=== PATIENT | male | born 1995 | race African-American/Black ===

== ENCOUNTER 2018-01-30 20:47 | Emergency (ER) | payer OTHER, SELFPAY ==
--- NOTE | 2018-01-30 22:18 | EDPHYS ---
Physician Documentation [facility] Name: Isiah Heart Age: 23 yrs Sex: Male : 1995 Arrival Date: 01/30/2018 Time: 20:53 Bed 10 Private MD: ED Physician Mckinley Valentine HPI: 01/30 21:53 This 23 yrs old Black Male presents to ER via Ambulatory with complaints of Nausea, tw4 Sore Throat. 21:53 The patient presents with sore throat. The patient describes throat pain as burning. tw4 Onset: The symptoms/episode began/occurred today. Severity of symptoms: At their worst the symptoms were moderate, in the emergency department the symptoms are unchanged. Modifying factors: The symptoms are alleviated by nothing, the symptoms are aggravated by nothing. Associated signs and symptoms: Pertinent positives: nausea, vomiting, Pertinent negatives chest pain, chills, diarrhea, dysphagia, earache, flu-like symptoms, headache, nausea. The patient has not experienced similar symptoms in the past. Historical: - Allergies: 21:13 No Known Allergies; sr5 - Home Meds: 21:13 None [Active]; sr5 - PMHx: 21:13 None; sr5 - PSHx: 21:13 None; sr5 - Immunization history:: Adult Immunizations up to date. - Social history:: Smoking status: Patient/guardian denies using tobacco, never smoked. - Ebola Screening: : Patient negative for fever greater than or equal to 101.5 degrees Fahrenheit, and additional compatible Ebola Virus Disease symptoms. ROS: 21:53 Constitutional: Negative for fever, chills, and weight loss, Eyes: Negative for injury, tw4 pain, redness, and discharge, Cardiovascular: Negative for chest pain, palpitations, and edema, Respiratory: Negative for shortness of breath, cough, wheezing, and pleuritic chest pain, Abdomen/GI: Negative for abdominal pain, nausea, vomiting, diarrhea, and constipation. 21:53 ENT: Positive for sore throat, Negative for ear pain, foreign body sensation, Gum pain hearing loss, pulling at ears, Teeth pain nasal discharge, sinus congestion. 21:53 Abdomen/GI: Positive for nausea and vomiting, nausea, vomiting, and diarrhea. Exam: 21:53 Constitutional: This is a well developed, well nourished patient who is awake, alert, tw4 and in no acute distress. Head/Face: Normocephalic, atraumatic. 21:53 ENT: External ear(s): are unremarkable, Ear canal(s): are normal, TM's: are normal, Posterior pharynx: swelling, that is mild, erythema, that is mild. Vital Signs: 21:13 BP 135 / 83; Pulse 72; Resp 18; Temp 98.6; Pulse Ox 100% on R/A; Weight 97.52 kg; sr5 Height 6 ft. 1 in. (185.42 cm); Pain 5/10; 22:30 BP 128 / 67; Pulse 71; Resp 16; Temp 98; Pulse Ox 99% on R/A; Pain 0/10; bs1 21:13 Body Mass Index 28.37 (97.52 kg, 185.42 cm) sr5 MDM: 21:17 Patient medically screened. tw4 21:53 Data reviewed: vital signs, nurses notes. Counseling: I had a detailed discussion with tw4 the patient and/or guardian regarding: the historical points, exam findings, and any diagnostic results supporting the discharge/admit diagnosis. 22:15 Special discussion: I discussed with the patient/guardian in detail that at this point tw4 there is no indication for admission to the hospital. It is understood, however, that if the symptoms persist or worsen the patient needs to return immediately for re-evaluation. 01/30 21:27 Order name: Strep; Complete Time: 22:15 tw4 01/30 22:14 Order name: Throat Culture EDMS Administered Medications: No medications were administered Disposition: 01/30/18 22:17 Discharged to Home. Impression: Acute pharyngitis, unspecified. - Condition is Stable. - Discharge Instructions: Pharyngitis, Pharyngitis, [id number]. - Work release form, Medication Reconciliation Form, Thank You Letter, Antibiotic Education, Prescription Opioid Use form. - Follow up: Private Physician; When: Upon discharge from the Emergency Department; Reason: Further diagnostic work-up, Recheck today's complaints, Re-evaluation by your physician. - Problem is new. - Symptoms have improved. Signatures: Dispatcher [employer] EDAL Mathew Hardy RN RN sr5 Tiffany Alcantara RN RN bs1 Mckinley Valentine MD MD tw4 Corrections: (The following items were deleted from the chart) 22:32 22:17 01/30/2018 22:17 Discharged to Home. Impression: Acute pharyngitis, unspecified. bs1 Condition is Stable. Discharge Instructions: Pharyngitis, Pharyngitis, [id number]. Forms are Thank You Letter, Medication Reconciliation Form, Antibiotic Education, Prescription Opioid Use. Follow up: Private Physician; When: Upon discharge from the Emergency Department; Reason: Further diagnostic work-up, Recheck today's complaints, Re-evaluation by your physician. Problem is new. Symptoms have improved. tw4
--- NOTE | 2018-01-30 22:18 | ER ---
Nurse's Notes [facility] Name: Isiah Heart Age: 23 yrs Sex: Male : 1995 Arrival Date: 01/30/2018 Time: 20:53 Bed 10 Private MD: Diagnosis: Acute pharyngitis, unspecified Presentation: 01/30 21:12 Presenting complaint: Patient states: sore throat, nausea, vomiting since early this sr5 AM. Denies fever/recent travel. Denies PMH. Transition of care: patient was not received from another setting of care. Onset of symptoms was January 30, 2018. Risk Assessment: Do you want to hurt yourself or someone else? Patient reports no desire to harm self or others. Initial Sepsis Screen: Does the patient meet any 2 criteria? No. Patient's initial sepsis screen is negative. Does the patient have a suspected source of infection? No. Patient's initial sepsis screen is negative. Care prior to arrival: None. 21:12 Method Of Arrival: Ambulatory sr5 21:12 Acuity: TAY 4 sr5 Triage Assessment: 21:13 General: Appears in no apparent distress. comfortable, Behavior is calm, cooperative. sr5 Pain: Complains of pain in neck Pain currently is 5 out of 10 on a pain scale. Aggravated by swallowing. Neuro: No deficits noted. Cardiovascular: No deficits noted. Respiratory: No deficits noted. GI: Reports nausea, vomiting. Historical: - Allergies: 21:13 No Known Allergies; sr5 - Home Meds: 21:13 None [Active]; sr5 - PMHx: 21:13 None; sr5 - PSHx: 21:13 None; sr5 - Immunization history:: Adult Immunizations up to date. - Social history:: Smoking status: Patient/guardian denies using tobacco, never smoked. - Ebola Screening: : Patient negative for fever greater than or equal to 101.5 degrees Fahrenheit, and additional compatible Ebola Virus Disease symptoms. Screenin:53 Abuse screen: Denies threats or abuse. Denies injuries from another. Nutritional bs1 screening: No deficits noted. Tuberculosis screening: No symptoms or risk factors identified. Fall Risk None identified. Assessment: 21:51 General: Appears in no apparent distress. comfortable, Behavior is calm, cooperative, bs1 appropriate for age. Pain: Complains of pain in throat. Neuro: Level of Consciousness is awake, alert, obeys commands, Oriented to person, place, time, situation, Appropriate for age. Cardiovascular: Heart tones S1 S2 present Capillary refill < 3 seconds Patient's skin is warm and dry. Respiratory: Airway is patent Trachea midline Respiratory effort is even, unlabored, Respiratory pattern is regular, symmetrical, Breath sounds are clear bilaterally. GI: Abdomen is flat, non-distended, Bowel sounds present X 4 quads. Reports nausea. : No signs and/or symptoms were reported regarding the genitourinary system. EENT: Throat is pink. Derm: Skin is intact, Skin is pink, warm \T\ dry. normal. Musculoskeletal: Circulation, motion, and sensation intact. Capillary refill < 3 seconds, Range of motion: intact in all extremities. 22:30 Reassessment: Patient appears in no apparent distress at this time. Patient and/or bs1 family updated on plan of care and expected duration. Pain level reassessed. Patient is alert, oriented x 3, equal unlabored respirations, skin warm/dry/pink. Patient states understanding of discharge instructions. Vital Signs: 21:13 BP 135 / 83; Pulse 72; Resp 18; Temp 98.6; Pulse Ox 100% on R/A; Weight 97.52 kg; sr5 Height 6 ft. 1 in. (185.42 cm); Pain 5/10; 22:30 BP 128 / 67; Pulse 71; Resp 16; Temp 98; Pulse Ox 99% on R/A; Pain 0/10; bs1 21:13 Body Mass Index 28.37 (97.52 kg, 185.42 cm) sr5 ED Course: 20:53 Patient arrived in ED. es 21:13 Triage completed. sr5 21:13 Arm band placed on right wrist. sr5 21:17 Mckinley Valentine MD is Attending Physician. tw4 21:33 Tiffany Alcantara, AMBROSE is Primary Nurse. bs1 21:53 Patient has correct armband on for positive identification. Bed in low position. Call bs1 light in reach. Side rails up X 1. Pulse ox on. NIBP on. 22:31 No provider procedures requiring assistance completed. Patient did not have IV access bs1 during this emergency room visit. Administered Medications: No medications were administered Outcome: 22:17 Discharge ordered by . tw4 22:31 Discharged to home ambulatory. bs1 22:31 Condition: stable 22:31 Discharge instructions given to patient, Instructed on discharge instructions, follow up and referral plans. Demonstrated understanding of instructions, follow-up care. 22:32 Patient left the ED. bs1 Signatures: Keena Rodas Sam RN RN sr5 Tiffany Alcantara RN RN bs1 Mckinley Valentine MD MD tw4
== END 2018-01-30 22:32 | disposition home or self-care (01) ==
LOC: ER 20:47
DX: J02.9 Acute pharyngitis, unspecified (principal)
CPT/HCPCS: 87070; 87081; 99283

== ENCOUNTER 2018-10-27 12:23 | Emergency (ER) | payer SELFPAY ==
--- NOTE | 2018-10-27 15:53 | RAD REPORT ---
EXAM DESCRIPTION: RAD - Knee Left 3 View - 10/27/2018 3:46 pm CLINICAL HISTORY: Fall, knee pain COMPARISON: None. FINDINGS: No fracture, dislocation or periosteal reaction.No joint effusion seen. No joint space donato rowing. No air or foreign body in the soft tissues. Soft tissues anterior to the patella and patella tendon are edematous. IMPRESSION: Contusion or edema changes in the soft tissues anterior to the knee. No acute bone or joint finding. Clinical concerns for internal derangement or occult bony injury could be further assessed with MR im aging.
--- NOTE | 2018-10-27 15:54 | RAD REPORT ---
EXAM DESCRIPTION: RAD - Tib Fib Right - 10/27/2018 3:46 pm CLINICAL HISTORY: Leg pain following fall COMPARISON: None. FINDINGS: No fracture is identified. There is no dislocation or periosteal reaction noted. No acute or suspicious bony finding. No acute findings at the ankle joint. Knee joint is separately detailed. No foreign body or other soft tissue abnormality. IMPRESSION: Negative right tibia & fibula examination.
--- NOTE | 2018-10-27 16:05 | ER ---
Nurse's Notes [facility] Name: Isiah Heart Age: 23 yrs Sex: Male : 1995 Arrival Date: 10/27/2018 Time: 12:25 Bed 12 Private MD: Diagnosis: Internal derangement of knee;Contusion of right lower leg Presentation: 10/27 12:47 Presenting complaint: Patient states: R knee pain after falling at work yesterday. ss Transition of care: patient was not received from another setting of care. Onset of symptoms was October 26, 2018. Risk Assessment: Do you want to hurt yourself or someone else? Patient reports no desire to harm self or others. Initial Sepsis Screen: Does the patient meet any 2 criteria? No. Patient's initial sepsis screen is negative. Does the patient have a suspected source of infection? No. Patient's initial sepsis screen is negative. Care prior to arrival: None. 12:47 Method Of Arrival: Ambulatory ss 12:47 Acuity: TAY 4 ss Historical: - Allergies: 12:47 No Known Allergies; ss - Immunization history:: Adult Immunizations unknown. - Social history:: Smoking status: Patient/guardian denies using tobacco. - Ebola Screening: : Patient denies exposure to infectious person Patient denies travel to an Ebola-affected area in the 21 days before illness onset. Screenin:52 Abuse screen: Denies threats or abuse. Denies injuries from another. Nutritional iw screening: No deficits noted. Tuberculosis screening: No symptoms or risk factors identified. Fall Risk None identified. Assessment: 14:52 General: Appears in no apparent distress. Behavior is calm, cooperative. Pain: iw Complains of pain in left knee. Neuro: Level of Consciousness is awake, alert, obeys commands, Oriented to person, place, time, situation. Cardiovascular: Patient's skin is warm and dry. Respiratory: Respiratory effort is even, unlabored. GI: No signs and/or symptoms were reported involving the gastrointestinal system. Derm: Skin is intact, is healthy with good turgor. Musculoskeletal: Range of motion: intact in all extremities. Vital Signs: 12:47 BP 129 / 71; Pulse 87; Resp 16; Temp 98.0(TE); Pulse Ox 99% on R/A; Weight 104.33 kg; ss Height 6 ft. 1 in. (185.42 cm); Pain 7/10; 12:47 Body Mass Index 30.34 (104.33 kg, 185.42 cm) ED Course: 12:25 Patient arrived in ED. as 12:47 Triage completed. ss 12:47 Arm band placed on right wrist. 14:48 Lai Turner PA is PHCP. [facility] 14:48 Santhosh Prince MD is Attending Physician. [facility] 14:52 Natali Murguia, RN is Primary Nurse. iw 14:53 Patient has correct armband on for positive identification. iw 14:53 No provider procedures requiring assistance completed. Patient did not have IV access iw during this emergency room visit. 15:43 X-ray completed. Portable x-ray completed in exam room. Patient tolerated procedure mh1 well. 15:44 Knee Left 3 View XRAY In Process Unspecified. EDMS 15:44 Tib Fib Right XRAY In Process Unspecified. EDMS 16:04 Chacho Monroe MD is Referral Physician. [facility] Administered Medications: No medications were administered Outcome: 16:05 Discharge ordered by . [facility] 16:19 Patient left the ED. sg Signatures: Dispatcher [employer] EDMS Everton Izquierdo RN RN Lai Turner PA PA [facility] Sasha Roger 1 Savannah Rojas as Natali Murguia, AMBROSE BOGGS Esperanza Wiley RN RN
--- NOTE | 2018-10-27 16:05 | EDPHYS ---
Physician Documentation [facility] Name: Isiah Heart Age: 23 yrs Sex: Male : 1995 Arrival Date: 10/27/2018 Time: 12:25 Bed 12 Private MD: ED Physician Santhosh Prince HPI: 10/27 15:21 This 23 yrs old Black Male presents to ER via Ambulatory with complaints of Knee Pain. [facility] 15:21 The patient presents with an injury, pain. Onset: The symptoms/episode began/occurred jm acutely, 2 day(s) ago. This is a 23 year old male with no chronic medical conditions that presents to the ED with complaints of left knee pain and right lower leg pain after climbing down a ladder. Patient denies head injury, denies back pain. Patient states having continued pain but has been able to bear weight without much difficulty. . Historical: - Allergies: 12:47 No Known Allergies; ss - Immunization history:: Adult Immunizations unknown. - Social history:: Smoking status: Patient/guardian denies using tobacco. - Ebola Screening: : Patient denies exposure to infectious person Patient denies travel to an Ebola-affected area in the 21 days before illness onset. ROS: 15:21 Constitutional: Negative for fever, chills, and weight loss, Cardiovascular: Negative jm for chest pain, palpitations, and edema, Respiratory: Negative for shortness of breath, cough, wheezing, and pleuritic chest pain. 15:21 MS/extremity: Positive for injury or acute deformity, pain. 15:21 All other systems are negative. Exam: 15:21 Head/Face: atraumatic. Eyes: EOMI, no conjunctival erythema appreciated ENT: Moist jmm Mucus Membranes Neck: Trachea midline, Supple Chest/axilla: Normal chest wall appearance and motion. Cardiovascular: Regular rate and rhythm. No edema appreciated Respiratory: Normal respirations, no respiratory distress appreciated Abdomen/GI: Non distended, soft Back: Normal ROM Skin: General appearance color normal 15:21 Constitutional: The patient appears in no acute distress, alert, awake. 15:21 Musculoskeletal/extremity: Nails: FROM appreciated to the left knee, compartments are soft, full dorsalis pulse, NVI. Mild pain on palpation of the anterior knee, no obvious deformity appreciated. Mild pain is appreciated on palpation of the right lower leg. compartments are soft, full dorsalis pulse, NVI. . 15:21 Skin: Appearance: Color: normal in color. 15:21 Neuro: Orientation: is normal, Mentation: is normal, Memory: is normal. 15:21 Psych: Behavior/mood is pleasant, cooperative. Vital Signs: 12:47 BP 129 / 71; Pulse 87; Resp 16; Temp 98.0(TE); Pulse Ox 99% on R/A; Weight 104.33 kg; ss Height 6 ft. 1 in. (185.42 cm); Pain 7/10; 12:47 Body Mass Index 30.34 (104.33 kg, 185.42 cm) ss MDM: 15:21 Patient medically screened. [facility] 16:04 Data reviewed: vital signs, nurses notes. Counseling: I had a detailed discussion with nini the patient and/or guardian regarding: the historical points, exam findings, and any diagnostic results supporting the discharge/admit diagnosis, radiology results, the need for outpatient follow up, to return to the emergency department if symptoms worsen or persist or if there are any questions or concerns that arise at home. 10/27 15:22 Order name: Knee Left 3 View XRAY; Complete Time: 15:57 [facility] 10/27 15:22 Order name: Tib Fib Right XRAY; Complete Time: 15:57 [facility] Administered Medications: No medications were administered Disposition: 10/27/18 16:05 Discharged to Home. Impression: Internal derangement of knee, Contusion of right lower leg. - Condition is Stable. - Discharge Instructions: Knee Pain. - Prescriptions for Ibuprofen 800 mg Oral Tablet - take 1 tablet by ORAL route every 8 hours As needed take with food; 30 tablet. - Work release form, Medication Reconciliation Form, Thank You Letter, Antibiotic Education, Prescription Opioid Use form. - Follow up: Chacho Monroe MD; When: 2 - 3 days; Reason: Recheck today's complaints, Continuance of care, Re-evaluation by your physician. Addendum: 10/28/2018 16:41 Co-signature as Attending Physician, Santhosh Prince MD. g s Signatures: Dispatcher [employer] EDMS Everton Izquierdo RN RN Lai Kathleen PA PA jmm Smirch, Shelby, RN RN ss Starr, Gregory, MD MD gs Corrections: (The following items were deleted from the chart) 10/27 16:19 16:05 10/27/2018 16:05 Discharged to Home. Impression: Internal derangement of knee; sg Contusion of right lower leg. Condition is Stable. Forms are Medication Reconciliation Form, Thank You Letter, Antibiotic Education, Prescription Opioid Use. Follow up: Dr. Chacho Monroe; When: 2 - 3 days; Reason: Recheck today's complaints, Continuance of care, Re-evaluation by your physician. nini
== END 2018-10-27 16:19 | disposition home or self-care (01) ==
LOC: ER 12:23
DX: M23.92 Unspecified internal derangement of left knee (principal); X58.XXXA Exposure to other specified factors, initial encounter; Y93.89 Activity, other specified; Y92.9 Unspecified place or not applicable
CPT/HCPCS: 99282

== ENCOUNTER 2019-01-01 17:45 | Emergency (ER) | payer SELFPAY ==
--- NOTE | 2019-01-01 18:39 | RAD REPORT ---
EXAM DESCRIPTION: RAD - Chest Pa And Lat (2 Views) - 01/01/2019 6:29 pm CLINICAL HISTORY: Chest pain;Cough Chest pain. COMPARISON: <Comparisons> FINDINGS: The lungs are clear. The heart is normal in size. No displaced fractures. IMPRESSION: No acute or concerning finding suspected.
--- NOTE | 2019-01-01 20:31 | ER ---
Nurse's Notes [facility] Name: Isiah Heart Age: 23 yrs Sex: Male : 1995 Arrival Date: 01/01/2019 Time: 17:48 Bed 18 Private MD: Diagnosis: Chest pain, unspecified;Chest pain on breathing Presentation: 01/01 17:53 Presenting complaint: Patient states: mid-sternal chest pain that began 2-3 days ago. aa5 Pt reports productive cough x 1 week. 17:53 Transition of care: patient was not received from another setting of care. Onset of aa5 symptoms was December 2018. Risk Assessment: Do you want to hurt yourself or someone else? Patient reports no desire to harm self or others. Initial Sepsis Screen: Does the patient meet any 2 criteria? No. Patient's initial sepsis screen is negative. Does the patient have a suspected source of infection? No. Patient's initial sepsis screen is negative. Care prior to arrival: None. 17:53 Acuity: TAY 3 aa5 17:53 Method Of Arrival: Ambulatory aa5 Historical: - Allergies: 17:55 No Known Allergies; aa5 - PMHx: 17:55 None; aa5 - PSHx: 17:55 None; aa5 - Immunization history:: Adult Immunizations up to date. - Social history:: Smoking status: Patient/guardian denies using tobacco. - Ebola Screening: : No symptoms or risks identified at this time. Screenin:28 Abuse screen: Denies threats or abuse. Nutritional screening: No deficits noted. jb4 Tuberculosis screening: No symptoms or risk factors identified. Fall Risk None identified. Assessment: 19:26 General: Appears in no apparent distress. comfortable, Behavior is calm, cooperative, jb4 appropriate for age. Pain: Complains of pain in diaphragm Pain does not radiate. Pain currently is 2 out of 10 on a pain scale. at worst was 7 out of 10 on a pain scale. Quality of pain is described as stabbing, Pain began 3-4 days ago. Is intermittent, Aggravated by taking deep breaths. Neuro: Level of Consciousness is awake, alert, obeys commands, Oriented to person, place, time, situation. Cardiovascular: Heart tones S1 S2 present Patient's skin is warm and dry. Respiratory: Airway is patent Respiratory effort is even, unlabored, Respiratory pattern is regular, symmetrical. GI: No signs and/or symptoms were reported involving the gastrointestinal system. : No signs and/or symptoms were reported regarding the genitourinary system. EENT: No signs and/or symptoms were reported regarding the EENT system. Derm: Skin is intact, Skin is dry, Skin is normal, Skin temperature is warm. Musculoskeletal: Circulation, motion, and sensation intact. Range of motion: intact in all extremities. 20:43 Reassessment: Patient appears in no apparent distress at this time. Patient and/or jb4 family updated on plan of care and expected duration. Pain level reassessed. Patient is alert, oriented x 3, equal unlabored respirations, skin warm/dry/pink. Pt verbalized understanding of d/c and follow up instructions. denies questions or concerns. ambulated out of ED with steady gait. Patient states feeling better. Vital Signs: 17:57 BP 128 / 73; Pulse 87; Resp 16 S; Temp 99.3(O); Pulse Ox 100% on R/A; Weight 105.23 kg aa5 (R); Height 6 ft. 1 in. (185.42 cm) (R); Pain 1/10; 19:30 BP 110 / 70; Pulse 87; Resp 16; Pulse Ox 100% on R/A; jb4 20:30 BP 106 / 69; Pulse 77; Resp 16; Pulse Ox 100% on R/A; jb4 17:57 Body Mass Index 30.61 (105.23 kg, 185.42 cm) aa5 ED Course: 17:48 Patient arrived in ED. as 17:55 Arm band placed on. aa5 17:56 Triage completed. aa5 18:00 EKG completed in triage. Results shown to MD. aa5 18:01 Patient placed in waiting room, Patient notified of wait time. aa5 18:30 Chest Pa And Lat (2 Views) XRAY In Process Unspecified. EDMS 19:19 David Cruz, AMBROSE is Primary Nurse. jb4 19:24 Mckinley Valentine MD is Attending Physician. tw4 19:28 Patient has correct armband on for positive identification. Bed in low position. Call jb4 light in reach. Side rails up X 1. Pulse ox on. NIBP on. 19:28 Patient maintains SpO2 saturation greater than 95% on room air. jb4 20:30 No provider procedures requiring assistance completed. Patient did not have IV access jb4 during this emergency room visit. Administered Medications: 20:45 Drug: Motrin 800 mg Route: PO; jb4 20:46 Follow up: Response: Medication administered at discharge. jb4 Outcome: 20:30 Discharge ordered by . tw4 20:45 Discharged to home ambulatory. jb4 20:45 Condition: stable 20:45 Discharge instructions given to patient, Instructed on discharge instructions, follow up and referral plans. medication usage, Demonstrated understanding of instructions, follow-up care, medications, Prescriptions given X 1. 20:46 Patient left the ED. jb4 Signatures: Dispatcher [employer] EDMS Savannah Rojas Audri, RN RN aa5 David Cruz RN RN jb4 Mckinley Valentine MD MD tw4 Corrections: (The following items were deleted from the chart) 20:44 20:43 Reassessment: Patient appears in no apparent distress at this time. Patient jb4 and/or family updated on plan of care and expected duration. Pain level reassessed. Patient is alert, oriented x 3, equal unlabored respirations, skin warm/dry/pink. Patient states feeling better. jb4 20:45 19:28 quality assurance monitor chassis on. Pulse ox on. NIBP on. jb4 jb4
--- NOTE | 2019-01-01 20:31 | EDPHYS ---
Physician Documentation [facility] Name: Isiah Heart Age: 23 yrs Sex: Male : 1995 Arrival Date: 01/01/2019 Time: 17:48 Bed 18 Private MD: ED Physician Mckinley Valentine HPI: 01/01 20:45 This 23 yrs old Black Male presents to ER via Ambulatory with complaints of Chest Pain. tw4 20:45 The patient or guardian reports chest pain that is located primarily in the anterior tw4 chest wall. The pain does not radiate. Associated signs and symptoms: The patient has no apparent associated signs or symptoms. The chest pain is described as a heaviness. Duration: The patient or guardian reports a single episode. Modifying factors: The symptoms are alleviated by nothing. the symptoms are aggravated by nothing. Severity of pain: At its worst the pain was mild. The patient has not experienced similar symptoms in the past. Historical: - Allergies: 17:55 No Known Allergies; aa5 - PMHx: 17:55 None; aa5 - PSHx: 17:55 None; aa5 - Immunization history:: Adult Immunizations up to date. - Social history:: Smoking status: Patient/guardian denies using tobacco. - Ebola Screening: : No symptoms or risks identified at this time. ROS: 20:45 Constitutional: Negative for fever, chills, and weight loss, Eyes: Negative for injury, tw4 pain, redness, and discharge, Cardiovascular: Negative for chest pain, palpitations, and edema, Respiratory: Negative for shortness of breath, cough, wheezing, and pleuritic chest pain, Abdomen/GI: Negative for abdominal pain, nausea, vomiting, diarrhea, and constipation, Back: Negative for injury and pain, Neuro: Negative for headache, weakness, numbness, tingling, and seizure. Exam: 20:45 Constitutional: This is a well developed, well nourished patient who is awake, alert, tw4 and in no acute distress. Head/Face: Normocephalic, atraumatic. Chest/axilla: Normal chest wall appearance and motion. Nontender with no deformity. No lesions are appreciated. Cardiovascular: Regular rate and rhythm with a normal S1 and S2. No gallops, murmurs, or rubs. Normal PMI, no JVD. No pulse deficits. Respiratory: Lungs have equal breath sounds bilaterally, clear to auscultation and percussion. No rales, rhonchi or wheezes noted. No increased work of breathing, no retractions or nasal flaring. Vital Signs: 17:57 BP 128 / 73; Pulse 87; Resp 16 S; Temp 99.3(O); Pulse Ox 100% on R/A; Weight 105.23 kg aa5 (R); Height 6 ft. 1 in. (185.42 cm) (R); Pain 1/10; 19:30 BP 110 / 70; Pulse 87; Resp 16; Pulse Ox 100% on R/A; jb4 20:30 BP 106 / 69; Pulse 77; Resp 16; Pulse Ox 100% on R/A; jb4 17:57 Body Mass Index 30.61 (105.23 kg, 185.42 cm) aa5 MDM: 19:24 Patient medically screened. tw4 01/01 17:56 Order name: Chest Pa And Lat (2 Views) XRAY [facility] Administered Medications: 20:45 Drug: Motrin 800 mg Route: PO; 4 20:46 Follow up: Response: Medication administered at discharge. jb4 Disposition: 01/01/19 20:30 Discharged to Home. Impression: Chest pain, unspecified, Chest pain on breathing. - Condition is Stable. - Discharge Instructions: Nonspecific Chest Pain, Chest Wall Pain, Costochondritis. - Prescriptions for Ibuprofen 800 mg Oral Tablet - take 1 tablet by ORAL route every 8 hours As needed take with food; 30 tablet. - Medication Reconciliation Form, Thank You Letter, Antibiotic Education, Prescription Opioid Use form. - Follow up: Private Physician; When: Upon discharge from the Emergency Department; Reason: If symptoms return, Recheck today's complaints, Continuance of care. - Problem is new. - Symptoms have improved. Signatures: Dispatcher [employer] EDMS Jenn Garcia RN RN aa5 David Cruz RN RN jb4 Mckinley Valentine MD MD 4 Corrections: (The following items were deleted from the chart) 20:46 20:30 01/01/2019 20:30 Discharged to Home. Impression: Chest pain, unspecified; Chest jb4 pain on breathing. Condition is Stable. Forms are Medication Reconciliation Form, Thank You Letter, Antibiotic Education, Prescription Opioid Use. Follow up: Private Physician; When: Upon discharge from the Emergency Department; Reason: If symptoms return, Recheck today's complaints, Continuance of care. Problem is new. Symptoms have improved. tw4
[2019-01-01] MEDS ORDERED: IBUPROFEN 400 MG TAB ONE (20:55)
--- NOTE | 2019-01-03 10:42 | EKG ---
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
== END 2019-01-01 20:46 | disposition home or self-care (01) ==
LOC: ER 17:45
DX: R07.9 Chest pain, unspecified (principal); R07.1 Chest pain on breathing
CPT/HCPCS: 71046; 93005; 99284

== ENCOUNTER 2019-01-18 12:38 | Emergency (ER) | payer SELFPAY ==
[2019-01-18 14:29] LABS: Absolute Lymphocytes (CBC) 1.5 K/uL (0.7-4.9); Basophils % 0.4 % (0-1.3); Hematocrit 44.5 % (39.6-49.0); Lymphocytes % 22.4 % (15.3-44.8); MPV 9.7 fL (7.6-11.3); RBC Red Blood Cell Count 5.03 M/uL (4.33-5.43)
[2019-01-18 14:31] LABS: Protime INR 1.3
--- NOTE | 2019-01-18 14:45 | RAD REPORT ---
EXAM DESCRIPTION: Michi Single View01/18/2019 2:40 pm CLINICAL HISTORY: Chest pain COMPARISON: December 2018 FINDINGS: The lungs appear clear of acute infiltrate. The heart is normal size IMPRESSION: No acute abnormalities displayed
[2019-01-18 14:50] LABS: ALT/SGPT 22 U/L (12-78); AST/SGOT 21 U/L (15-37); Albumin 4.3 g/dL (3.4-5.0); Alkaline Phosphatase 158 U/L (45-117); BUN Blood Urea Nitrogen 17 mg/dL (7-18); Bicarbonate 29 mmol/L (21-32); Bilirubin Direct 0.1 mg/dL (0-0.2); Bilirubin Total 0.4 mg/dL (0.2-1.0); Glucose Level 103 mg/dL (74-106); Lipase 70 U/L (73-393); Magnesium 2.6 mg/dL (1.8-2.4); NT PRO-BNP 20 pg/mL (<125); Potassium 3.7 mmol/L (3.5-5.1); Protein, Total 9.4 g/dL (6.4-8.2); Sodium Level 136 mmol/L (136-145); Troponin (Emerg Dept Use Only) < 0.02 ng/mL (0.0-0.045)
--- NOTE | 2019-01-18 15:21 | ER ---
Nurse's Notes [facility] Name: Isiah Heart Age: 24 yrs Sex: Male : 1995 Arrival Date: 01/18/2019 Time: 12:40 Bed 7 Private MD: Diagnosis: Chest pain, unspecified Presentation: 01/18 13:31 Presenting complaint: Patient states: Chest pain x 2 weeks, also reports nausea, denies ph vomiting or SOB, also c/o nose pain r/t getting elbowed in nose playing basketball. Transition of care: patient was not received from another setting of care. Onset of symptoms was January 18, 2019. Risk Assessment: Do you want to hurt yourself or someone else? Patient reports no desire to harm self or others. Initial Sepsis Screen: Does the patient meet any 2 criteria? No. Patient's initial sepsis screen is negative. Does the patient have a suspected source of infection? No. Patient's initial sepsis screen is negative. Care prior to arrival: None. 13:31 Method Of Arrival: Ambulatory ph 13:31 Acuity: TAY 3 ph Historical: - Allergies: 13:34 No Known Allergies; ph - Home Meds: 13:34 None [Active]; ph - PMHx: 13:34 None; ph - PSHx: 13:34 None; ph - Immunization history:: Adult Immunizations unknown. - Social history:: Smoking status: Patient/guardian denies using tobacco. - Ebola Screening: : No symptoms or risks identified at this time. Screenin:10 Abuse screen: Denies threats or abuse. Denies injuries from another. Nutritional sv screening: No deficits noted. Tuberculosis screening: No symptoms or risk factors identified. Fall Risk None identified. Assessment: 14:15 General: Appears in no apparent distress. comfortable, well developed, Behavior is sv calm, cooperative, appropriate for age. Pain: Complains of pain in xyphoid area and epigastric area Pain does not radiate. Pain currently is 5 out of 10 on a pain scale. Pain began weeks ago Is intermittent, Aggravated by exercise, increased activity, heat. Neuro: Level of Consciousness is awake, alert, obeys commands, Oriented to person, place, time, situation, Moves all extremities. Full function Speech is normal. Cardiovascular: Patient's skin is warm and dry. Rhythm is sinus rhythm. Respiratory: Airway is patent Respiratory effort is even, unlabored, Respiratory pattern is regular, symmetrical. Derm: Skin is pink, warm \T\ dry. Musculoskeletal: Range of motion: intact in all extremities. 15:50 Reassessment: Patient appears in no apparent distress at this time. No changes from previously documented assessment. Patient and/or family updated on plan of care and expected duration. Pain level reassessed. Patient is alert, oriented x 3, equal unlabored respirations, skin warm/dry/pink. Vital Signs: 13:33 BP 130 / 76; Pulse 91; Resp 18; Temp 97.8; Pulse Ox 100% on R/A; Weight 108.86 kg; ph Height 6 ft. 2 in. (187.96 cm); 14:19 BP 117 / 73; Pulse 93; Resp 17; Pulse Ox 100% on R/A; sv 14:30 BP 134 / 79; Pulse 84; Resp 16; Pulse Ox 100% ; sv 15:46 Pulse 91; Resp 18; Pulse Ox 99% on R/A; sv 13:33 Body Mass Index 30.81 (108.86 kg, 187.96 cm) ph ED Course: 12:40 Patient arrived in ED. as 13:33 Triage completed. ph 13:34 Arm band placed on right wrist. ph 13:36 Lai Turner PA is PHCP. [facility] 13:36 Jason Ahn MD is Attending Physician. [facility] 14:10 Lashonda Woods, RN is Primary Nurse. sv 14:10 Patient has correct armband on for positive identification. Bed in low position. Call sv light in reach. Door closed. Head of bed elevated. 14:10 site monitor on. Pulse ox on. NIBP on. sv 14:10 Patient maintains SpO2 saturation greater than 95% on room air. sv 14:15 Initial lab(s) drawn, by mt, sent to lab. Inserted saline lock: 20 gauge in right sv antecubital area, using aseptic technique. Blood collected. Flushed right antecubital with 5 ml normal saline. 14:19 X-ray(s) taken. sv 14:21 Awaiting lab results, Awaiting radiology results. sv 14:22 EKG done, by train control electronic technician. reviewed by Jason Ahn MD. 3 14:40 XRAY Chest (1 view) In Process Unspecified. EDMS 15:50 No provider procedures requiring assistance completed. IV discontinued, intact, sv bleeding controlled, No redness/swelling at site. Pressure dressing applied. Administered Medications: No medications were administered Outcome: 15:21 Discharge ordered by . nini 15:50 Discharged to home ambulatory. sv 15:50 Condition: stable 15:50 Discharge instructions given to patient, Instructed on discharge instructions, follow up and referral plans. medication usage, Demonstrated understanding of instructions, follow-up care, medications, Prescriptions given X 1. 15:51 Patient left the ED. Signatures: Dispatcher [employer] EDMS Lashonda Woods RN RN Lai Fontenot PA PA jmm Martinez, Amelia as Hall, Patricia, RN RN Cindi Sibley RN RN Emy Aaron 3
--- NOTE | 2019-01-18 15:21 | EDPHYS ---
Physician Documentation [facility] Name: Isiah Heart Age: 24 yrs Sex: Male : 1995 Arrival Date: 01/18/2019 Time: 12:40 Bed 7 Private MD: ED Physician Jason Ahn HPI: 01/18 14:02 This 24 yrs old Black Male presents to ER via Ambulatory with complaints of Chest Pain, jmm Facial Pain. 14:02 The patient or guardian reports chest pain that is located primarily in the substernal [facility] area. The pain does not radiate. The chest pain is described as aching. Duration: The patient or guardian reports multiple episodes. Modifying factors: the symptoms are aggravated by laying down. This is a 24 year old male with no chronic medical conditions that presents to the ED with complaints of chest pain beginning approx 2 weeks ago. Patient denies history of CAD, denies recreational drug use. Patient has had two negative ekg since onset. Denies known injury. Symptoms are worsened when he lies down. . Historical: - Allergies: 13:34 No Known Allergies; ph - Home Meds: 13:34 None [Active]; ph - PMHx: 13:34 None; ph - PSHx: 13:34 None; ph - Immunization history:: Adult Immunizations unknown. - Social history:: Smoking status: Patient/guardian denies using tobacco. - Ebola Screening: : No symptoms or risks identified at this time. ROS: 14:02 Constitutional: Negative for fever, chills, and weight loss. [facility] 14:02 Respiratory: Negative for shortness of breath, cough, wheezing, and pleuritic chest pain. 14:02 Back: Negative for injury and pain. 14:02 Cardiovascular: Positive for chest pain. 14:02 Abdomen/GI: Positive for abdominal pain. 14:02 Neuro: Negative for weakness. 14:02 All other systems are negative. Exam: 14:02 Constitutional: This is a well developed, well nourished patient who is awake, alert, jmm and in no acute distress. Head/Face: atraumatic. Eyes: EOMI, no conjunctival erythema appreciated ENT: Moist Mucus Membranes Neck: Trachea midline, Supple Chest/axilla: Normal chest wall appearance and motion. 14:02 Cardiovascular: Rate: normal, Rhythm: regular, Pulses: no pulse deficits are appreciated. 14:02 Respiratory: the patient does not display signs of respiratory distress, Respirations: normal, Breath sounds: are clear throughout. 14:02 Abdomen/GI: Inspection: abdomen appears normal, Bowel sounds: normal, Palpation: abdomen is soft and non-tender, in all quadrants. 14:02 Musculoskeletal/extremity: ROM: intact in all extremities. 14:02 Musculoskeletal/extremity: no edema appreciated. 14:02 Skin: Appearance: Color: normal in color. 14:02 Neuro: Orientation: appropriate for stated age, Mentation: is normal, Memory: is normal. 14:02 Psych: Behavior/mood is pleasant, cooperative. 15:21 ECG was reviewed by the Attending Physician. [facility] Vital Signs: 13:33 BP 130 / 76; Pulse 91; Resp 18; Temp 97.8; Pulse Ox 100% on R/A; Weight 108.86 kg; ph Height 6 ft. 2 in. (187.96 cm); 14:19 BP 117 / 73; Pulse 93; Resp 17; Pulse Ox 100% on R/A; sv 14:30 BP 134 / 79; Pulse 84; Resp 16; Pulse Ox 100% ; sv 15:46 Pulse 91; Resp 18; Pulse Ox 99% on R/A; sv 13:33 Body Mass Index 30.81 (108.86 kg, 187.96 cm) ph MDM: 14:02 Patient medically screened. [facility] 15:20 Data reviewed: vital signs, nurses notes. Counseling: I had a detailed discussion with [facility] the patient and/or guardian regarding: the historical points, exam findings, and any diagnostic results supporting the discharge/admit diagnosis, the need for outpatient follow up, to return to the emergency department if symptoms worsen or persist or if there are any questions or concerns that arise at home. 15:20 RENARD Risk Score: TOTAL SCORE = 0. [facility] 15:20 The patient's pulmonary embolism risk score was calculated as follows: Total Score: 0-2 [facility] points. This patient was found to be at low risk for a pulmonary embolism by using the Well's assessment criteria. ED course: HEART SCORE = 0 PERC SCORE = 0. 01/18 14:02 Order name: Basic Metabolic Panel; Complete Time: 15:05 [facility] 01/18 14:02 Order name: CBC with Diff; Complete Time: 14:40 [facility] 01/18 14:02 Order name: LFT's; Complete Time: 15:05 [facility] 01/18 14:02 Order name: Magnesium; Complete Time: 15:05 [facility] 01/18 14:02 Order name: NT PRO-BNP; Complete Time: 15:05 [facility] 01/18 14:02 Order name: PT-INR; Complete Time: 14:40 [facility] 01/18 14:02 Order name: Troponin (emerg Dept Use Only); Complete Time: 15:05 [facility] 01/18 14:02 Order name: XRAY Chest (1 view); Complete Time: 14:48 [facility] 01/18 14:02 Order name: EKG; Complete Time: 14:04 [facility] 01/18 14:02 Order name: Cardiac monitoring; Complete Time: 14:10 [facility] 01/18 14:02 Order name: EKG - Nurse/Tech; Complete Time: 14:19 [facility] 01/18 14:02 Order name: IV Saline Lock; Complete Time: 14:18 [facility] 01/18 14:02 Order name: Labs collected and sent; Complete Time: 14:18 [facility] 01/18 14:02 Order name: Lipase; Complete Time: 15:05 [facility] 01/18 14:02 Order name: O2 Per Protocol; Complete Time: 14:10 [facility] 01/18 14:02 Order name: O2 Sat Monitoring; Complete Time: 14:10 jmm EC:21 Rate is 87 beats/min. Rhythm is regular. QRS [place] is Normal. [place] interval is normal. QRS jmm interval is normal. QT interval is normal. No Q waves. T waves are Normal. No ST changes noted. Reviewed by me. Administered Medications: No medications were administered Disposition: 01/19 08:08 Co-signature as Attending Physician, Jason Ahn MD I agree with the assessment and kdr plan of care. Disposition: 01/18/19 15:21 Discharged to Home. Impression: Chest pain, unspecified. - Condition is Stable. - Discharge Instructions: Nonspecific Chest Pain. - Prescriptions for Pepcid 20 mg Oral Tablet - take 1 tablet by ORAL route every 12 hours for 10 days; 20 tablet. - Medication Reconciliation Form, Thank You Letter, Antibiotic Education, Prescription Opioid Use, Work release form form. - Follow up: Private Physician; When: 2 - 3 days; Reason: Recheck today's complaints, Continuance of care, Re-evaluation by your physician. Signatures: Dispatcher [employer] EDMS Jason Ahn MD MD kdr Mickail, Joel, PA PA jmm Hall, Patricia, RN RN Cindi Sibley RN RN Corrections: (The following items were deleted from the chart) 01/18 15:51 15:21 01/18/2019 15:21 Discharged to Home. Impression: Chest pain, unspecified. hb Condition is Stable. Forms are Medication Reconciliation Form, Thank You Letter, Antibiotic Education, Prescription Opioid Use. Follow up: Private Physician; When: 2 - 3 days; Reason: Recheck today's complaints, Continuance of care, Re-evaluation by your physician. nini
--- NOTE | 2019-01-18 16:27 | EKG ---
Test Date: 2019-01-18 Test Time: 12:51:48 National Account Manager: KIRSTY MEASUREMENT RESULTS: Intervals: Rate: 87 [place]: 160 QRSD: 76 QT: 348 QTc: 418 [place]: P: 33 [place]: 160 QRS: 31 T: 20 INTERPRETIVE STATEMENTS: Normal sinus rhythm Normal ECG Compared to ECG 01/01/2019 18:02:41 No significant changes Electronically Signed On 01-18-19 16:25:22 CDT by Jacek Patiño
== END 2019-01-18 15:51 | disposition home or self-care (01) ==
LOC: ER 12:38
DX: R07.9 Chest pain, unspecified (principal)
CPT/HCPCS: 36415; 71045; 80048; 80076; 83690; 83735; 83880; 84484; 85025; 85610; 93005; 99285

== ENCOUNTER 2024-02-20 20:19 | Emergency (ER) | payer SELFPAY ==
--- NOTE | 2024-02-20 21:42 | RAD REPORT ---
EXAM DESCRIPTION: CT - Abdomen Pelvis Wo Contrast - 02/20/2024 9:31 pm CLINICAL HISTORY: Abdominal pain COMPARISON: None TECHNIQUE: Computed axial tomography of the abdomen and pelvis was obtained. IV and oral contrast we re not requested. All CT scans are performed using dose optimization technique as appropriate and may include automated exposure control or mA/KV adjustment according to patient size. FINDINGS: The evaluation of solid organs, vessels and bowel is limited secondary to the lack of con trast administration. The liver, spleen, pancreas, adrenals and kidneys appear grossly normal. The appendix is normal. There is no evidence of diverticulitis. Small umbilical hernia Very small left inguinal hernia contains fat IMPRESSION: No acute abnormality is displayed.
[2024-02-20] MEDS ORDERED: NA CHLORIDE 0.9% 1,000 ML ONE (22:59)
[2024-02-20] MEDS ORDERED: ONDANSETRON 4 MG/2 ML VIAL ONE (22:59)
[2024-02-20 23:14] LABS: Albumin 4.2 g/dL (3.4-5.0); Anion Gap 9.2 mEq/L (5.0-15.0); Bilirubin Total 0.4 mg/dL (0.2-1.0); Globulin 4.3 g/dL (2.3-3.5); Potassium 3.2 mEq/L (3.5-5.1); Protein, Total 8.5 g/dL (6.4-8.2)
[2024-02-20 23:30] LABS: Absolute Eosinophils 0.2 K/uL (0-0.5); Absolute Lymphocytes (CBC) 1.5 K/uL (0.7-4.9); Absolute Monocytes 0.7 K/uL (0.1-1.3); Absolute Neutrophil 3.9 K/uL (1.8-8.0); Basophils % 0.4 % (0-1.3); Eosinophils % 3.1 % (0-4.4); Hematocrit 43.1 % (39.6-49.0); Hemoglobin 14.7 g/dL (13.6-17.9); Lymphocytes % 23.6 % (15.3-44.8); MCH 29.9 pg (27.0-35.0); MCHC 34.1 g/dL (32.0-36.0); MCV 87.5 fL (80-100); Monocytes % 11.6 % (3.3-12.3); Neutrophils % 61.3 % (41.7-73.7); Nucleated Red Blood Cells % 0.4 % (0-0); Platelets 170 thou/uL (152-406); RBC Red Blood Cell Count 4.92 M/uL (4.33-5.43); Red Cell Distribution Width 12.5 % (12.1-15.2)
[2024-02-20] MEDS ORDERED: POTASSIUM CL SA 10 MEQ TAB PO ONE (23:43)
--- NOTE | 2024-02-21 00:18 | ER ---
Nurse's Notes [facility] Name: Isiah Heart Age: 29 yrs Sex: Male : 1995 Arrival Date: 02/20/2024 Time: 20:19 Bed 14 Private MD: Diagnosis: Noninfective gastroenteritis and colitis, unspecified;Hypokalemia Presentation: 02/19 20:59 Chief complaint: Patient states: Abdominal pain onset yesterday and diarrhea. Pt cm10 reports that his left side of his abdomen hurts more. Coronavirus screen: Client denies travel out of the [place] in the last 14 days. At this time, the client does not indicate any symptoms associated with coronavirus-19. Ebola Screen: Patient denies travel to an Ebola-affected area in the 21 days before illness onset. No symptoms or risks identified at this time. Initial Sepsis Screen: Does the patient meet any 2 criteria? HR > 90 bpm. Does the patient have a suspected source of infection? No. Patient's initial sepsis screen is negative. Risk Assessment: Do you want to hurt yourself or someone else? Patient reports no desire to harm self or others. Onset of symptoms was February 20, 2024. 20:59 Method Of Arrival: Ambulatory cm10 20:59 Acuity: TAY 3 cm10 Triage Assessment: 21:00 General: Appears in no apparent distress. comfortable, Behavior is calm, cooperative. cm10 Neuro: No deficits noted. Level of Consciousness is awake, alert, obeys commands, Oriented to person, place, time, situation, Appropriate for age. Respiratory: No deficits noted. Airway is patent Respiratory effort is even, unlabored, Respiratory pattern is regular, symmetrical. Historical: - Allergies: 21:00 No Known Allergies; cm10 - Home Meds: 21:00 None [Active]; cm10 - PMHx: 21:00 None; cm10 - PSHx: 21:00 None; cm10 - Immunization history:: Adult Immunizations up to date. - Infectious Disease History:: Denies. - Social history:: Smoking status: Patient denies any tobacco usage or history of. Screenin:00 [facility] ED Fall Risk Assessment (Adult) History of falling in the last 3 months, al5 including since admission No falls in past 3 months (0 pts) Confusion or Disorientation No (0 pts) Intoxicated or Sedated No (0 pts) Impaired Gait No (0 pts) Mobility Assist Device Used No (0 pt) Altered Elimination No (0 pt) Score/Fall Risk Level 0 - 2 = Low Risk Oriented to surroundings, Maintained a safe environment, Hourly rounding (assess needs \T\ fall precautionary measures) done. Abuse screen: Denies threats or abuse. Denies injuries from another. Nutritional screening: No deficits noted. Tuberculosis screening: No symptoms or risk factors identified. Assessment: 22:00 General: Appears in no apparent distress. Behavior is calm, cooperative. Pain: al5 Complains of pain in abdomen. Neuro: Level of Consciousness is awake, alert, obeys commands, Oriented to person, place, time, situation. Cardiovascular: Capillary refill < 3 seconds Patient's skin is warm and dry. Respiratory: Airway is patent Respiratory effort is even, unlabored, Respiratory pattern is regular, symmetrical. GI: Abdomen is flat, non-distended, Bowel sounds present X 4 quads. Abd is soft X 4 quads Abdomen is tender to palpation X 4 quads. Reports lower abdominal pain, upper abdominal pain, diarrhea, nausea. : No signs and/or symptoms were reported regarding the genitourinary system. EENT: No signs and/or symptoms were reported regarding the EENT system. Derm: Skin is intact, Skin is pink, warm \T\ dry. normal. Musculoskeletal: No signs and/or symptoms reported regarding the musculoskeletal system. 23:20 Reassessment: Patient appears in no apparent distress at this time. Patient and/or al5 family updated on plan of care and expected duration. Pain level reassessed. Patient is alert, oriented x 3, equal unlabored respirations, skin warm/dry/pink. Patient states feeling better. 02/20 00:39 Reassessment: Patient appears in no apparent distress at this time. No changes from al5 previously documented assessment. Patient and/or family updated on plan of care and expected duration. Pain level reassessed. Patient is alert, oriented x 3, equal unlabored respirations, skin warm/dry/pink. Vital Signs: 02/19 20:59 BP 137 / 86; Pulse 94; Resp 19; Temp 97.5; Pulse Ox 99% on R/A; Weight 117.93 kg; cm10 Height 6 ft. 0 in. ; Pain /10; 22:00 BP 138 / 89; Pulse 86; Resp 18; Pulse Ox 100% on R/A; al5 22:30 BP 125 / 78; Pulse 80; Resp 18; Pulse Ox 99% on R/A; al5 23:00 BP 142 / 89; Pulse 89; Resp 18; Pulse Ox 99% on R/A; al5 23:00 BP 138 / 87; Pulse 84; Resp 18; Pulse Ox 98% on R/A; al5 23:30 BP 143 / 92; Pulse 90; Resp 18; Pulse Ox 99% on R/A; al5 02/20 00:00 BP 132 / 84; Pulse 89; Resp 18; Pulse Ox 98% on R/A; al5 02/19 20:59 Body Mass Index 35.26 (117.93 kg, 182.88 cm) cm10 02/19 20:59 Pain Scale: Adult cm10 ED Course: 02/19 20:23 Patient arrived in ED. im 20:34 Suad Lind PA-C is PHCP. sb4 20:34 Chuck Chaudhry MD is Attending Physician. sb4 21:00 Triage completed. cm10 21:00 Arm band placed on Patient placed in waiting room. cm10 21:33 CT Abd/Pelvis - Without Contrast In Process Unspecified. EDMS 22:00 Patient has correct armband on for positive identification. Placed in gown. Bed in low al5 position. Call light in reach. Side rails up X2. Provided Education on: processes and procedures. 22:00 No provider procedures requiring assistance completed. al5 22:24 Norma Huitron, RN is Primary Nurse. al5 22:30 Missed attempt(s): 20 gauge in left antecubital area. al5 22:40 Missed attempt(s): 20 gauge in right antecubital area. asked charge nurse to attempt to al5 obtain IV access. 23:03 CBC with Diff Sent. al5 23:03 CMP Sent. al5 23:03 Lipase Sent. al5 23:09 Inserted saline lock: 22 gauge in right antecubital area, using aseptic technique. ss Blood collected. Flushed with 10 mL NS. 02/20 00:45 IV discontinued, intact, bleeding controlled, No redness/swelling at site. Pressure al5 dressing applied. Administered Medications: 02/19 23:14 Drug: NS 0.9% IV 1000 ml IV at 1 bolus Per protocol; 1000 mL bolus Route: IV; Rate: 1 al5 bolus; Site: right antecubital; 02/20 00:37 Follow up: Response: No adverse reaction; IV Status: Completed infusion; IV Intake: al5 1000ml 02/19 23:14 Drug: Ondansetron IVP 4 mg IVP once; over 2 minutes Route: IVP; Site: right antecubital;al5 02/20 00:37 Follow up: Response: No adverse reaction; Nausea is decreased al5 02/19 23:51 Drug: Potassium Chloride PO 40 mEq PO once Route: PO; al5 02/20 00:37 Follow up: Response: No adverse reaction al5 Medication: 00:45 VIS not applicable for this client. al5 Intake: 00:37 IV: 1000ml; Total: 1000ml. al5 Outcome: 00:17 Discharge ordered by . ec2 00:45 Discharged to home ambulatory, al5 00:45 Condition: good 00:45 Discharge instructions given to patient, Instructed on discharge instructions, follow up and referral plans. medication usage, Demonstrated understanding of instructions, follow-up care, medications, Prescriptions given X 1, 00:45 Patient left the ED. al5 Signatures: Dispatcher [employer] Esperanza Duque, Suad Orozco RN, PA-C PARaisa [email or web address] [place] Nena Acuna Clarissa, RN RN cm10 Chuck Chaudhry MD MD ec2 Norma Huitron RN RN al5
--- NOTE | 2024-02-21 00:18 | EDPHYS ---
Physician Documentation [facility] Name: Isiah Heart Age: 29 yrs Sex: Male : 1995 Arrival Date: 02/20/2024 Time: 20:19 Bed 14 Private MD: ED Physician Chuck Chaudhry HPI: 02/19 21:04 This 29 yrs old Black Male presents to ER via Ambulatory with complaints of Abdominal ec2 Pain, Diarrhea, fatigue. 21:04 Patient arrives today for evaluation of abdominal pain along with nausea, vomiting, ec2 diarrhea. Patient reports multiple daily symptoms. Patient reports decreased p.o. intake. States he had some mucus in his stool several months ago. Has not followed up outpatient with any physicians at this time.. Historical: - Allergies: 21:00 No Known Allergies; cm10 - Home Meds: 21:00 None [Active]; cm10 - PMHx: 21:00 None; cm10 - PSHx: 21:00 None; cm10 - Immunization history:: Adult Immunizations up to date. - Infectious Disease History:: Denies. - Social history:: Smoking status: Patient denies any tobacco usage or history of. ROS: 21:04 Constitutional: as per hpi ec2 Exam: 21:04 Constitutional: GEN: NAD Head: atraumatic Eyes: EOMI Ears: External ears are ec2 normal. CV: regular rate LUNGS: no respiratory distress ABD: non-distended, soft, generally tender, guarding, not rigid. SKIN: no evidence of rashes MSK: no evidence of trauma Vital Signs: 20:59 BP 137 / 86; Pulse 94; Resp 19; Temp 97.5; Pulse Ox 99% on R/A; Weight 117.93 kg; cm10 Height 6 ft. 0 in. ; Pain 6/10; 22:00 BP 138 / 89; Pulse 86; Resp 18; Pulse Ox 100% on R/A; al5 22:30 BP 125 / 78; Pulse 80; Resp 18; Pulse Ox 99% on R/A; al5 23:00 BP 142 / 89; Pulse 89; Resp 18; Pulse Ox 99% on R/A; al5 23:00 BP 138 / 87; Pulse 84; Resp 18; Pulse Ox 98% on R/A; al5 23:30 BP 143 / 92; Pulse 90; Resp 18; Pulse Ox 99% on R/A; al5 02/20 00:00 BP 132 / 84; Pulse 89; Resp 18; Pulse Ox 98% on R/A; al5 02/19 20:59 Body Mass Index 35.26 (117.93 kg, 182.88 cm) cm10 02/19 20:59 Pain Scale: Adult cm10 MDM: 02/19 20:52 Patient medically screened. ec2 21:04 Data reviewed: vital signs. ED course: Arrives today for evaluation of generalized ec2 abdominal pain along with nausea and diarrhea. Examination remarkable for well-appearing nontoxic individuals otherwise in no acute distress will obtain labs, CT imaging. Will treat the patient's symptoms with crystalloid and antiemetic.. 22:28 ED course: CT imaging shows no acute intra-abdominal process.. ec2 23:34 ED course: Metabolic profile shows slight hypokalemia. Lipase within normal ranges. . ec2 02/20 00:17 ED course: CBC is reassuring. On reassessment patient is well-appearing no acute ec2 distress. Will discharge home. Return precautions given. Presentation consistent with gastroenteritis.. 02/19 21:03 Order name: CBC with Diff; Complete Time: 00:41 ec2 02/19 21:03 Order name: CMP; Complete Time: 23:34 ec2 02/19 21:03 Order name: Lipase; Complete Time: 23:34 ec2 02/20 00:09 Order name: CBC Smear Scan; Complete Time: 00:41 EDMS 02/19 21:03 Order name: CT Abd/Pelvis - Without Contrast; Complete Time: 22:28 ec2 02/19 21:03 Order name: IV Saline Lock; Complete Time: 23:03 ec2 02/19 21:03 Order name: Labs collected and sent; Complete Time: 23:03 ec2 02/19 23:10 Order name: Misc. Order: recollect purple top; Complete Time: 23:14 kmf Administered Medications: 02/19 23:14 Drug: NS 0.9% IV 1000 ml IV at 1 bolus Per protocol; 1000 mL bolus Route: IV; Rate: 1 al5 bolus; Site: right antecubital; 02/20 00:37 Follow up: Response: No adverse reaction; IV Status: Completed infusion; IV Intake: al5 1000ml 02/19 23:14 Drug: Ondansetron IVP 4 mg IVP once; over 2 minutes Route: IVP; Site: right antecubital;al5 02/20 00:37 Follow up: Response: No adverse reaction; Nausea is decreased al5 02/19 23:51 Drug: Potassium Chloride PO 40 mEq PO once Route: PO; al5 02/20 00:37 Follow up: Response: No adverse reaction al5 Disposition Summary: 02/21/24 00:17 Discharge Ordered Notes: Location: Home ec2 Condition: Stable ec2 Diagnosis - Noninfective gastroenteritis and colitis, unspecified ec2 - Hypokalemia ec2 Followup: ec2 - With: Private Physician - When: - Reason: Re-evaluation by your physician Discharge Instructions: - Discharge Summary Sheet ec2 - Potassium Content of Foods ec2 - Viral Gastroenteritis, Adult, [id number] ec2 Forms: - Medication Reconciliation Form ec2 - Antibiotic Education ec2 - Prescription Opioid Use ec2 - Patient Portal Instructions ec2 - Leadership Thank You Letter ec2 Prescriptions: - Zofran 4 mg Oral Tablet - take 1 tablet ORAL route every 12 hours As needed; 20 tablet; Refills: 0, ec2 Product Selection Permitted Signatures: Dispatcher [employer] Teri Murphy, RN RN cm10 Chuck Chaudhry MD MD ec2 Lamar Crystal Amanda RN RN al5
[2024-02-21 00:40] LABS: Blood Morphology Comment NOT SEEN (NOT SEEN); Platelet Estimate ADEQ; Platelets Clumped NOTED; White Blood Cell Scan OK (OK)
[2024-02-21 01:33] VITALS: TEMP 97.5
[2024-02-21 01:42] VITALS: BP 132/84; O2SAT 98
== END 2024-02-21 00:45 | disposition home or self-care (01) ==
LOC: ER 20:19
DX: K52.9 Noninfective gastroenteritis and colitis, unspecified (principal); E87.6 Hypokalemia
CPT/HCPCS: 36415; 74176; 80053; 83690; 85025; 96361; 96374; 99284; J2405; J7030